=== PATIENT | male | born 1985 | race Two or more races ===

== ENCOUNTER 2016-12-24 18:22 | Emergency (ER) | payer BC ==
[2016-12-24] MEDS ORDERED: AMITRIPTYLINE100 M1 PO (18:32)
[2016-12-24] MEDS ORDERED: MECLIZINE HCL25 M3 PO (18:32)
== END 2016-12-24 19:59 ==
LOC: EDMED 18:22
DX: R07.9 Chest pain, unspecified (principal); F10.20 Alcohol dependence, uncomplicated